=== PATIENT | female | born 1970 | race African-American/Black ===

== ENCOUNTER 2016-10-04 19:30 | Emergency (ER) | payer OTHER ==
[~2016-10-04] VITALS: Ht 170.2 cm; Wt 90.7 kg
[~2016-10-04 19:30] MED LIST: AUGMENTIN 875-1 EAC1 ORAL; CYCLOBENZAPRINE10 MG ORAL; IBUPROFEN600 MG ORAL; IBUPROFEN800 MG ORAL; LISINOPRIL10 MG ORAL; LISINOPRIL5 MG ORAL; NORCO 5-325 TA1 EAC1 ORAL; NORCO 5-325 TA1 EACH ORAL; NORCO 5-325 TA1 EACH PO; PATADAY2.5 ML OP; REGLAN10 MG ORAL; SILVADENE20 GM TP; UNOBMED
[2016-10-04 19:52] VITALS: BP 139/94
[2016-10-04] MEDS ORDERED: Loperamide 2mg cap ORAL ONE (20:30)
[2016-10-04 21:05] LABS: MEAN CORPUSCULAR HEMOGLOBIN 36.4 PG (27.0-31.0); MEAN CORPUSCULAR HGB CONC 33.1 G/DL (32.0-36.0); MEAN CORPUSCULAR VOLUME 110 FL (80-99); MEAN PLATELET VOLUME 6.3 FL (6.5-10.1); PLATELET COUNT 276 K/UL (150-450); RED BLOOD COUNT 3.23 M/UL (4.20-5.40); RED CELL DISTRIBUTION WIDTH 12.9 % (11.6-14.8); WHITE BLOOD COUNT 7.1 K/UL (4.8-10.8)
[2016-10-04 21:08] LABS: BASOPHILS % (AUTO) 0.8 % (0.0-2.0); EOSINOPHILS % (AUTO) 1.3 % (0.0-3.0); LYMPHOCYTES % (AUTO) 55.3 % (20.0-45.0); MONOCYTES % (AUTO) 3.2 % (1.0-10.0); NEUTROPHILS % (AUTO) 39.4 % (45.0-75.0)
[2016-10-04 21:30] LABS: ANION GAP 17 (5-15); CALCIUM 8.9 mg/dL (8.6-10.2); CARBON DIOXIDE 24 mEQ/L (20-30); CHLORIDE 97 mEQ/L (98-107); CREATININE 0.9 mg/dL (0.5-0.9); GLOMERULAR FILTRATION RATE > 60 mL/min (>60); HEMOLYSIS 65; POTASSIUM 3.8 mEQ/L (3.4-4.9); SODIUM 138 mEQ/L (135-145)
[2016-10-04] MEDS ORDERED: ZOFRAN4 M3 ORAL (22:02)
[2016-10-04] MEDS ORDERED: IMODIUM2 MG ORAL (22:02)
[2016-10-04 22:13] VITALS: BP 125/82
[2016-10-04 22:14] VITALS: BP 125/82
--- NOTE | 2016-10-08 08:38 | Emergency Room Report ---
History of Present Illness General Chief Complaint: Abdominal Pain Source: Patient Present Illness HPI Patient is a 46-year-old female presented after having increased abdominal pain. Patient reported having increased crampy pain associated with vomiting and diarrhea. The patient thinks this began after eating some bad food. Patient had no recent travel. The patient had no recent hematemesis or bloody stools. She states that she had been having multiple episodes of watery diarrhea. She denied been . Allergies: Coded Allergies: No Known Allergies (Unverified , 10/22/15) Patient History Past Medical History: see triage record Last Menstrual Period: 09/24/16 Now: No Reviewed Nursing Documentation: PMH: Agreed, PSxH: Agreed Nursing Documentation-PMH Past Medical History: No History, Except For Hx Hypertension: Yes Hx Cancer: No Hx Gastrointestinal Problems: Yes - ABD PAIN Hx Neurological Problems: No Review of Systems All Other Systems: negative except mentioned in HPI Physical Exam Vital Signs Date Time Temp Pulse Resp B/P Pulse Ox O2 Delivery O2 Flow Rate FiO2 10/04/16 19:49 98.4 89 14 139/94 100 Room Air Sp02 EP Interpretation: reviewed, normal General Appearance: normal inspection, well appearing, no apparent distress, alert, GCS 15 Head: atraumatic ENT: normal ENT inspection, hearing grossly normal, normal voice Neck: normal inspection, full range of motion, supple, no bony tend Respiratory: normal inspection, lungs clear, normal breath sounds, no respiratory distress, no retraction, no wheezing Cardiovascular #1: regular rate, rhythm, no edema Gastrointestinal: normal inspection, normal bowel sounds, non tender, soft, no guarding, no hernia Genitourinary: no CVA tenderness Musculoskeletal: normal inspection, back normal, normal range of motion Neurologic: normal inspection, alert, oriented x3, responsive, glove boarder III-XII nml as tested, speech normal Psychiatric: normal inspection, judgement/insight normal, mood/affect normal Skin: normal inspection, normal color, no rash Medical Decision Making Diagnostic Impression: Primary Impression: Gastroenteritis and colitis, viral ER Course Patient presented for abdominal pain. Differential diagnoses included ischemic bowel, appendicitis, perforated viscus, abdominal aortic aneurysm, inferior myocardial infarction, viral gastroenteritis. Because of complexity of patient' s case laboratory testing and imaging studies were ordered. . Patient was given antiemetics as well as a GI cocktail. The patient some improvement in her symptoms. The patient presented a viral gastroenteritis.The patient is advised to follow up with primary care doctor in 1-2 days. Patient is advised to return if any worsening condition or if any changes in status that are concerning. Labs Test 10/04/16 20:45 White Blood Count 7.1 K/UL (4.8-10.8) Red Blood Count 3.23 M/UL (4.20-5.40) Hemoglobin 11.8 G/DL (12.0-16.0) Hematocrit 35.6 % (37.0-47.0) Mean Corpuscular Volume 110 FL (80-99) Mean Corpuscular Hemoglobin 36.4 PG (27.0-31.0) Mean Corpuscular Hemoglobin Concent 33.1 G/DL (32.0-36.0) Red Cell Distribution Width 12.9 % (11.6-14.8) Platelet Count 276 K/UL (150-450) Mean Platelet Volume 6.3 FL (6.5-10.1) Neutrophils (%) (Auto) 39.4 % (45.0-75.0) Lymphocytes (%) (Auto) 55.3 % (20.0-45.0) Monocytes (%) (Auto) 3.2 % (1.0-10.0) Eosinophils (%) (Auto) 1.3 % (0.0-3.0) Basophils (%) (Auto) 0.8 % (0.0-2.0) Sodium Level 138 mEQ/L (135-145) Potassium Level 3.8 mEQ/L (3.4-4.9) Chloride Level 97 mEQ/L (98-107) Carbon Dioxide Level 24 mEQ/L (20-30) Anion Gap 17 (5-15) Blood Urea Nitrogen 13 mg/dL (7-23) Creatinine 0.9 mg/dL (0.5-0.9) Estimat Glomerular Filtration Rate > 60 mL/min (>60) Glucose Level 104 mg/dL (74-106) Calcium Level 8.9 mg/dL (8.6-10.2) Last Vital Signs Date Time Temp Pulse Resp B/P Pulse Ox O2 Delivery O2 Flow Rate FiO2 10/04/16 22:14 98.4 80 16 125/82 99 Room Air Status: improved Disposition: HOME, SELF-CARE Condition: Stable Scripts Ondansetron* (ZOFRAN*) 4 Mg Tablet 4 MG ORAL Q6H Y for Nausea & Vomiting, #20 TAB Prov: Ryan Eagle 10/04/16 Loperamide HCl (Loperamide) 2 Mg Capsule 2 MG ORAL Q4H, #20 CAP 0 Refills Prov: Ryan Eagle 10/04/16 Patient Instructions: Viral Gastroenteritis, Adult Ryan Eagle Oct 08, 2016 08:38
== END 2016-10-04 22:14 | disposition home or self-care (01) ==
LOC: EMR 20:30
DX: K52.9 Noninfective gastroenteritis and colitis, unspecified (principal); A08.4 Viral intestinal infection, unspecified; R10.9 Unspecified abdominal pain; R11.10 Vomiting, unspecified; R19.7 Diarrhea, unspecified; I10 Essential (primary) hypertension
CPT/HCPCS: 36415; 80048; 85025; 96374; 96375; 99284; J2405; J7040

== ENCOUNTER 2017-03-02 08:39 | Emergency (ER) | payer OTHER ==
[~2017-03-02] VITALS: Ht 167.6 cm; Wt 96.6 kg
[~2017-03-02 08:39] MED LIST changes: +IMODIUM2 MG ORAL; +ZOFRAN4 M3 ORAL
[2017-03-02 09:03] VITALS: BP 123/85
[2017-03-02] MEDS ORDERED: IBUPROFEN600 MG ORAL (09:14)
[2017-03-02 09:29] VITALS: BP 121/85
--- NOTE | 2017-03-02 09:51 | Diagnostic Imaging Report ---
Indication: TRAUMA Technique: 3 views right hand Comparison: 2013 Findings: No acute fractures. No dislocations. Joint spaces are preserved. Previously question fracture fragment at the base of the fifth middle phalanx is no longer evident. Impression: Negative
--- NOTE | 2017-03-03 07:51 | Emergency Room Report ---
History of Present Illness General Chief Complaint: Pain Source: Patient, Medical Record Present Illness HPI Patient present with complaints of pain to her right middle finger Injury occurred about 2 weeks ago when the patient fell onto the finger Patient has had some continued swelling in the knuckle area she had seen her physician The presents for further evaluation Denies any wrist pain denies any elbow pain Denies any other trauma pain is 3/10 worse with moving the finger and touch Allergies: Coded Allergies: No Known Allergies (Unverified , 10/22/15) Patient History Past Medical History: see triage record Pertinent Family History: none Last Menstrual Period: 02/13/17 Now: No : 7 Para: 4 Reviewed Nursing Documentation: PMH: Agreed, PSxH: Agreed Nursing Documentation-PMH Past Medical History: No History, Except For Hx Hypertension: Yes Hx Cancer: No Hx Gastrointestinal Problems: Yes - ABD PAIN Hx Neurological Problems: No Review of Systems All Other Systems: negative except mentioned in HPI Physical Exam Vital Signs Date Time Temp Pulse Resp B/P Pulse Ox O2 Delivery O2 Flow Rate FiO2 03/02/17 08:43 98.1 68 17 123/85 98 Room Air Sp02 EP Interpretation: reviewed, normal General Appearance: well appearing, no apparent distress Head: normocephalic, atraumatic Eyes: bilateral eye EOMI, bilateral eye PERRL ENT: normal pharynx Neck: supple Respiratory: lungs clear Musculoskeletal: other - There is evidence of some mild swelling on the right middle finger compared to the left however good cap refill and neurovascularly intact Neurologic: alert, oriented x3, responsive Skin: other - As above Lymphatic: no adenopathy Procedures Splinting Splinting : Consent: Verbal Location: right middle finger Pre-Made Type: finger metal splint Pre-Proc Neuro Vasc Exam: normal Post-Proc Neuro Vasc Exam: normal Patient Tolerated: Well Complications: None Medical Decision Making Diagnostic Impression: Primary Impression: finger sprain ER Course X-ray imaging does not reveal any obvious acute fracture patient likely has ligamental/sprain/strain Patient did have the splint applied she is to follow up with her primary physician requires close outpatient Other X-Ray Diagnostic Results Other X-Ray Diagnostic Results : EP Interpretation: Yes Findings: no fractures, no dislocation, no soft tissue swelling Number of Views: 3 - right hand Last Vital Signs Date Time Temp Pulse Resp B/P Pulse Ox O2 Delivery O2 Flow Rate FiO2 03/02/17 09:29 65 16 121/85 99 Room Air 03/02/17 09:03 98.1 Status: improved Disposition: HOME, SELF-CARE Condition: Improved Scripts Ibuprofen* (MOTRIN*) 600 Mg Tablet 600 MG ORAL Q8H Y for For Pain, #20 TAB 0 Refills Prov: ALVARO SAN D.O. 03/02/17 Referrals: [employer],[facility]ERR[facility] (PCP) Patient Instructions: Finger Sprain, [id number] Additional Instructions: Patient is provided with the discharge instructions notified to follow up with primary doctor in the next 2-3 days otherwise return to the er with any worsening symptoms. Please note that this report is being documented using [employer] technology. This can lead to erroneous entry secondary to incorrect interpretation by the dictating instrument. ALVARO [place] D.O. Mar 03, 2017 07:51
== END 2017-03-02 09:31 | disposition home or self-care (01) ==
LOC: EMR 09:10
DX: S63.612A Unspecified sprain of right middle finger, initial encounter (principal); W19.XXXA Unspecified fall, initial encounter; Y92.89 Other specified places as the place of occurrence of the external cause
CPT/HCPCS: 29130; 99283

== ENCOUNTER 2018-08-27 09:34 | Emergency (ER) | payer MEDICAID, OTHER ==
[~2018-08-27] VITALS: Ht 167.6 cm; Wt 90.7 kg
[2018-08-27 10:05] VITALS: BP 136/95
[2018-08-27] MEDS ORDERED: ENALAPRIL MALEAT5 MG ORAL (10:05)
[2018-08-27] MEDS ORDERED: Ketorolac 60mg Inj IM ONE (11:15)
--- NOTE | 2018-08-27 11:23 | Emergency Room Report ---
History of Present Illness General Chief Complaint: Back Pain-No Injury Source: Patient, Medical Record Present Illness HPI Patient states that she has been sleeping on a hard floor. She states she did get an air mattress a couple days ago. However, she has been having severe low back pain diffusely. She denies weakness. She denies tingling or numbness. She denies loss of bowel or bladder control. She denies trauma. She states she does have a history of low back pain. She has no other complaints. Allergies: Coded Allergies: No Known Allergies (Unverified , 08/27/18) Patient History Past Medical History: none, see triage record, HTN Past Surgical History: none Pertinent Family History: none Social History: Denies: smoking, alcohol use, drug use Last Menstrual Period: Jul 2018 Reviewed Nursing Documentation: PMH: Agreed; PSxH: Agreed Nursing Documentation-PMH Past Medical History: No History, Except For Hx Hypertension: Yes Hx Cancer: No Hx Gastrointestinal Problems: Yes - ABD PAIN Hx Neurological Problems: No Review of Systems All Other Systems: negative except mentioned in HPI Physical Exam Vital Signs Date Time Temp Pulse Resp B/P (MAP) Pulse Ox O2 Delivery O2 Flow Rate FiO2 08/27/18 10:01 97.9 65 16 136/95 99 Room Air Sp02 EP Interpretation: reviewed, normal General Appearance: no apparent distress, alert, GCS 15, non-toxic Head: normocephalic, atraumatic Eyes: bilateral eye normal inspection, bilateral eye PERRL ENT: hearing grossly normal, normal pharynx, no angioedema, normal voice Neck: full range of motion, supple/symm/no masses Respiratory: no respiratory distress, no retraction, no accessory muscle use, speaking full sentences Rectal: deferred Musculoskeletal: gait/station normal, normal range of motion, tender - TTP Diffusely L. spine paraspinal m. Neurologic: alert, oriented x3, responsive, motor strength/tone normal, sensory intact, speech normal Psychiatric: judgement/insight normal, memory normal, mood/affect normal, no suicidal/homicidal ideation Skin: normal color, no rash, warm/dry, well hydrated Medical Decision Making Diagnostic Impression: Primary Impression: Muscle spasm of back Additional Impression: Lumbago ER Course This patient has a clinical presentation consistent with mechanical back pain. There are no red flags on physical exam. The patient denies any concerning features such as trauma, fevers, night sweats, history of malignancy, pain worse at night, IV drug abuse, urinary/fecal incontinence or retention, focal weakness or change in sensation, or refractory pain. Given these pertinent negatives in the history and physical exam an emergent cause of the back pain such as epidural abscess, metastasis to bone, cauda equina syndrome, and fracture is less likely. I also doubt emergent cardiovascular cause of back pain such as aortic dissection a ruptured abdominal aortic aneurysm given patient with equal pulses in all 4 extremities with no diastolic murmur or pulsatile abdominal mass. The patient was counseled that, though unlikely, the possibility of an emergent cause of back pain may still be present and that the patient should return immediately if symptoms persist or worsen. The symptoms are reproducible with movement. Patient had a benign evaluation and neurologic examination. No emergency etiology was identified. Last Vital Signs Date Time Temp Pulse Resp B/P (MAP) Pulse Ox O2 Delivery O2 Flow Rate FiO2 08/27/18 10:05 97.9 65 16 136/95 99 Room Air Status: improved Disposition: HOME, SELF-CARE Condition: Improved Referrals: NON PHYSICIAN (PCP) Patient Instructions: Back Pain, Adult Siri Jordan DO Aug 27, 2018 11:23
[2018-08-27] MEDS ORDERED: IBUPROFEN800 MG ORAL (11:26)
[2018-08-27] MEDS ORDERED: CYCLOBENZAPRINE10 MG ORAL (11:26)
[2018-08-27] MEDS ORDERED: ACETAMINOPHEN-1 EAC1 ORAL (11:26)
[2018-08-27 11:44] VITALS: BP 131/79
[2018-08-27 11:45] VITALS: BP 131/79
== END 2018-08-27 11:45 | disposition home or self-care (01) ==
LOC: EMR 10:15
DX: M62.830 Muscle spasm of back (principal); M54.5 Low back pain
CPT/HCPCS: 96372; 99283

== ENCOUNTER 2019-06-09 18:00 | Emergency (ER) | payer MEDICAID ==
[~2019-06-09] VITALS: Ht 167.6 cm; Wt 90.3 kg
[~2019-06-09 18:00] MED LIST changes: +ACETAMINOPHEN-1 EAC1 ORAL; +ENALAPRIL MALEAT5 MG ORAL
[2019-06-09 18:03] VITALS: BP 129/86
--- NOTE | 2019-06-09 18:09 | NUR ---
ED Nurse Note: Pt came in due to right hand swelling started this morning. Noted redness and swelling on her right hand. Possible insect bite. AAO x4 and ambulatory.
[2019-06-09] MEDS ORDERED: Cephalexin 500mg cap ORAL ONE (18:15)
[2019-06-09] MEDS ORDERED: BENADRYL25 MG ORAL (18:30)
[2019-06-09] MEDS ORDERED: CEPHALEXIN500 MG ORAL (18:30)
[2019-06-09 18:48] VITALS: BP 135/79
--- NOTE | 2019-06-09 18:48 | NUR ---
ER DISCHARGE NOTE: Patient is cleared to be discharged per PA, pt is aox4, on room air, with stable vital signs. pt was given dc and prescription instructions, pt was able to verbalize understanding, pt id band removed. pt is able to ambulate with steady gait. pt took all belongings.
--- NOTE | 2019-06-09 20:07 | Emergency Room Report ---
History of Present Illness General Chief Complaint: Skin Rash/Abscess Source: Patient, Medical Record Present Illness HPI The patient is a 49-year-old female presenting for possible insect bite. She states that she was outdoors today and noticed a bump on her right hand which has been increasing in size now. She noticed redness and swelling as well as pain. Pain is a 5 out of 10 dull ache and worse with touch. She denies any known allergies. She denies any radiating pain or other symptoms including N, V , fever, chills, numbness, SOB, CP Allergies: Coded Allergies: No Known Allergies (Unverified , 08/27/18) Patient History Past Medical History: see triage record Pertinent Family History: none Last Menstrual Period: 2 months ago Reviewed Nursing Documentation: PMH: Agreed; PSxH: Agreed Nursing Documentation-PMH Past Medical History: No History, Except For Hx Hypertension: Yes Hx Cancer: No Hx Gastrointestinal Problems: Yes - ABD PAIN Hx Neurological Problems: No Review of Systems All Other Systems: negative except mentioned in HPI Physical Exam Vital Signs Date Time Temp Pulse Resp B/P (MAP) Pulse Ox O2 Delivery O2 Flow Rate FiO2 06/09/19 18:03 98.2 76 16 129/86 98 Room Air Sp02 EP Interpretation: reviewed, normal General Appearance: no apparent distress, alert, GCS 15, non-toxic Head: normocephalic, atraumatic Respiratory: chest non-tender, lungs clear, normal breath sounds, speaking full sentences Neurologic: alert, oriented x3, responsive Psychiatric: judgement/insight normal, memory normal, mood/affect normal, no suicidal/homicidal ideation Skin: rash - R hand dorsal surface erythema and edema Medical Decision Making PA Attestation Dr. Davis is my supervising physician. Patient management was discussed with my supervising physician Diagnostic Impression: Primary Impression: Cellulitis Qualified Codes: L03.113 - Cellulitis of right upper limb ER Course The patient is a 49-year-old female presenting for possible insect bite. DDx considered but not limited to: cellulitis, abscess, dermatitis, allergic reaction, among others PE: Afebrile. vitals stable. R hand dorsal surface: + erythema, + edema, + hot to the touch, + tender to palpation Given keflex and benadryl in ER The patient will be discharged home with prescription for Keflex and benadryl and is told to follow-up with primary doctor as soon as possible. She is given ER precautions to return if she develops fever, chills, or any other symptoms Last Vital Signs Date Time Temp Pulse Resp B/P (MAP) Pulse Ox O2 Delivery O2 Flow Rate FiO2 06/09/19 18:48 98.8 72 17 135/79 96 Room Air Status: improved Disposition: HOME, SELF-CARE Condition: Improved Scripts Diphenhydramine Hcl* (BENADRYL*) 25 Mg Capsule 25 MG ORAL Q6H PRN for Itching, #10 CAP Prov: PHILIPPE DAVID P.A. 06/09/19 Cephalexin* (KEFLEX*) 500 Mg Capsule 500 MG ORAL EVERY 12 HOURS, #14 CAP 0 Refills Prov: PHILIPPE DAVID.A. 06/09/19 Referrals: NON PHYSICIAN (PCP) Patient Instructions: Cellulitis Additional Instructions: I discussed my findings with the patient. All questions and concerns have been answered. Treatment and medication compliance have been addressed. I advised the patient that they need to follow up with Primary doctor within 1-2 days. Return to ER if symptoms worsen, new symptoms arise such as fever, or if needed for any reason. Patient verbalized understanding of discharge instructions. PHILIPPE DAVID Jun 09, 2019 20:06
== END 2019-06-09 18:48 | disposition home or self-care (01) ==
LOC: EMR 18:15
DX: L03.113 Cellulitis of right upper limb (principal); I10 Essential (primary) hypertension
CPT/HCPCS: 99282

== ENCOUNTER 2019-07-11 09:07 | Emergency (ER) | payer MEDICAID ==
[~2019-07-11] VITALS: Ht 167.6 cm; Wt 90.7 kg
[~2019-07-11 09:07] MED LIST changes: +BENADRYL25 MG ORAL; +CEPHALEXIN500 MG ORAL
[2019-07-11 09:20] VITALS: BP 141/81
--- NOTE | 2019-07-11 09:20 | NUR ---
ED Nurse Note: Pt walked into ED c/o of nausea, vomitting and diarrhea for x3 days. Reports loose brownish/greenish stool and clear vomitus. Pt also c/o of LUQ pain /. IV established on LFA 20G, patent and asymptomatic. Will continue to monitor.
--- NOTE | 2019-07-11 09:25 | NUR ---
ED Nurse Note: Patient unable to provide urine at this time, Dr. duff aware and notified
[2019-07-11] MEDS ORDERED: Morphine Sulfate 4mg/ml Inj (IV USE ONLY) IVP ONE (09:30)
[2019-07-11 09:38] LABS: BASOPHILS % (AUTO) 0.5 % (0.0-2.0); EOSINOPHILS % (AUTO) 0.1 % (0.0-3.0); HEMOGLOBIN 13.8 G/DL (12.0-16.0); LYMPHOCYTES % (AUTO) 40.5 % (20.0-45.0); MEAN CORPUSCULAR VOLUME 102 FL (80-99); NEUTROPHILS % (AUTO) 54.8 % (45.0-75.0); PLATELET COUNT 299 K/UL (150-450); RED BLOOD COUNT 3.93 M/UL (4.20-5.40); RED CELL DISTRIBUTION WIDTH 11.8 % (11.6-14.8); WHITE BLOOD COUNT 7.6 K/UL (4.8-10.8)
--- NOTE | 2019-07-11 09:50 | Emergency Room Report ---
History of Present Illness General Chief Complaint: Nausea, Vomiting, and Diarrhea Source: Patient Present Illness HPI Patient presents emergency department today complaint nausea vomiting and diarrhea. Patient also has abdominal pain initially on the left lower quadrant but now improved. Patient denies any fever chest pain. States that she does have sick contacts. Symptoms noted to be severe. Of note patient states that she was admitted in the past for stomach blockage. Review of records show that patient had a history ileus I require admission. No other complaints are noted. Patient states that she has history of C-sections. Patient denies any dysuria urinary frequency. Patient states the symptoms have been going on for couple days she is unable to eat or drink anything. She is unable to tolerate any oral medications for nausea. No other modifying factors. No other associated signs and symptoms. No other complaints were noted. Allergies: Coded Allergies: No Known Allergies (Unverified , 08/27/18) Patient History Past Medical History: HTN, other - Abdominal pain Past Surgical History: none Pertinent Family History: none Social History: Denies: smoking, alcohol use, drug use Last Menstrual Period: 4 MONTHS AGO Now: No Reviewed Nursing Documentation: PMH: Agreed; PSxH: Agreed Nursing Documentation-PMH Hx Hypertension: Yes Hx Cancer: No Hx Gastrointestinal Problems: Yes - ABD PAIN Hx Neurological Problems: No Review of Systems All Other Systems: negative except mentioned in HPI Physical Exam Vital Signs Date Time Temp Pulse Resp B/P (MAP) Pulse Ox O2 Delivery O2 Flow Rate FiO2 07/11/19 09:09 98.1 65 22 168/72 (104) 97 Room Air Sp02 EP Interpretation: reviewed, normal General Appearance: normal inspection, well appearing, no apparent distress, alert Head: atraumatic Eyes: bilateral eye normal inspection ENT: normal ENT inspection, hearing grossly normal, normal voice Neck: normal inspection, full range of motion, supple, no bony tend Respiratory: normal inspection, lungs clear, normal breath sounds, no respiratory distress, no retraction, no wheezing Cardiovascular #1: regular rate, rhythm, no edema Gastrointestinal: normal inspection, normal bowel sounds, soft, no guarding, no hernia, no rebound, other - Diffusely tender. Genitourinary: no CVA tenderness Musculoskeletal: normal inspection, back normal, normal range of motion Neurologic: normal inspection, alert, responsive, speech normal Psychiatric: normal inspection, judgement/insight normal, mood/affect normal Medical Decision Making Diagnostic Impression: Primary Impression: Nausea, vomiting, and diarrhea Additional Impressions: abdominal pain UTI (urinary tract infection) Gastroenteritis ER Course Patient presents to the emergency department today complaining of abdominal pain. Differential considerations include acute pancreatitis, cholecystitis, gastritis, hepatitis, appendicitis just to name a few. Given the severity of the patient's presentation I felt this is a highly complex patient. This patient required extensive workup. Laboratory work-up shows evidence UTI. CT scan abdomen pelvis was performed because of history of ileus CT scans noted to be negative. Given patient's urine was positive for UTI feel the patient needed treatment with antibiotics. Patient was given prescription of Cipro. Zofran. Patient was given fluids felt much better. Therefore felt the patient be discharged home. Patient is advised to follow up with primary doctor in 2-3 days and return the emergency room for any worsening symptoms and as needed. Labs Test 07/11/19 09:15 White Blood Count 7.6 K/UL (4.8-10.8) Red Blood Count 3.93 M/UL (4.20-5.40) Hemoglobin 13.8 G/DL (12.0-16.0) Hematocrit 40.0 % (37.0-47.0) Mean Corpuscular Volume 102 FL (80-99) Mean Corpuscular Hemoglobin 35.1 PG (27.0-31.0) Mean Corpuscular Hemoglobin Concent 34.5 G/DL (32.0-36.0) Red Cell Distribution Width 11.8 % (11.6-14.8) Platelet Count 299 K/UL (150-450) Mean Platelet Volume 6.6 FL (6.5-10.1) Neutrophils (%) (Auto) 54.8 % (45.0-75.0) Lymphocytes (%) (Auto) 40.5 % (20.0-45.0) Monocytes (%) (Auto) 4.0 % (1.0-10.0) Eosinophils (%) (Auto) 0.1 % (0.0-3.0) Basophils (%) (Auto) 0.5 % (0.0-2.0) Urine Color Pale yellow Urine Appearance Clear Urine pH 8 (4.5-8.0) Urine Specific [place] 1.015 (1.005-1.035) Urine Protein 1+ (NEGATIVE) Urine Glucose (UA) Negative (NEGATIVE) Urine Ketones Negative (NEGATIVE) Urine Blood Negative (NEGATIVE) Urine Nitrite Negative (NEGATIVE) Urine Bilirubin Negative (NEGATIVE) Urine Urobilinogen Normal MG/DL (0.0-1.0) Urine Leukocyte Esterase 1+ (NEGATIVE) Urine RBC 0-2 /HPF (0 - 2) Urine WBC 20-30 /HPF (0 - 2) Urine Squamous Epithelial Cells Few /LPF (NONE/OCC) Urine Bacteria Few /HPF (NONE) Urine Mucus Few /LPF (NONE/OCC) Sodium Level 140 MMOL/L (136-145) Potassium Level 2.9 MMOL/L (3.5-5.1) Chloride Level 104 MMOL/L (98-107) Carbon Dioxide Level 23 MMOL/L (21-32) Anion Gap 13 mmol/L (5-15) Blood Urea Nitrogen 7 mg/dL (7-18) Creatinine 1.4 MG/DL (0.55-1.30) Estimat Glomerular Filtration Rate 48.8 mL/min (>60) Glucose Level 120 MG/DL (74-106) Calcium Level 9.8 MG/DL (8.5-10.1) Total Bilirubin 0.7 MG/DL (0.2-1.0) Aspartate Amino Transf (AST/SGOT) 29 U/L (15-37) Alanine Aminotransferase (ALT/SGPT) 50 U/L (12-78) Alkaline Phosphatase 61 U/L (46-116) Total Protein 7.6 G/DL (6.4-8.2) Albumin 3.8 G/DL (3.4-5.0) Globulin 3.8 g/dL Albumin/Globulin Ratio 1.0 (1.0-2.7) Lipase 133 U/L (73-393) CT/MRI/US Diagnostic Results CT/MRI/US Diagnostic Results : Imaging Test Ordered: CT abdomen pelvis: Negative Last Vital Signs Date Time Temp Pulse Resp B/P (MAP) Pulse Ox O2 Delivery O2 Flow Rate FiO2 07/11/19 09:20 98.1 74 19 141/81 100 Room Air Status: improved Disposition: HOME, SELF-CARE Condition: Stable Scripts Ondansetron (Zofran) 4 Mg Tablet 4 MG ORAL Q6H PRN for Nausea & Vomiting, #15 TAB 0 Refills Prov: Rey Mendez MD 07/11/19 Ciprofloxacin Hcl* (CIPROFLOXACIN HCL*) 500 Mg Tablet 500 MG ORAL Q12H, #14 TAB 0 Refills Prov: Rey Mendez MD 07/11/19 Referrals: NON PHYSICIAN (PCP) Rey Mendez MD Jul 11, 2019 09:50
[2019-07-11 09:55] LABS: ANION GAP 13 mmol/L (5-15); BLOOD UREA NITROGEN 7 mg/dL (7-18); CALCIUM 9.8 MG/DL (8.5-10.1); CARBON DIOXIDE 23 MMOL/L (21-32); CHLORIDE 104 MMOL/L (98-107); CREATININE 1.4 MG/DL (0.55-1.30); POTASSIUM 2.9 MMOL/L (3.5-5.1); SODIUM 140 MMOL/L (136-145)
[2019-07-11 10:00] LABS: ALANINE AMINOTRANSFERASE 50 U/L (12-78); ALBUMIN 3.8 G/DL (3.4-5.0); ALKALINE PHOSPHATASE 61 U/L (46-116); ASPARTATE AMINO TRANSFERASE 29 U/L (15-37); BILIRUBIN,TOTAL 0.7 MG/DL (0.2-1.0)
--- NOTE | 2019-07-11 10:00 | NUR ---
ED Nurse Note: Patient able to give urine, lab sent down
--- NOTE | 2019-07-11 10:30 | NUR ---
ED Nurse Note: Alexi went down to CT, accompanied by Tech
[2019-07-11 10:48] LABS: APPEARANCE,URINE CLEAR; BILIRUBIN, URINE NEGATIVE (NEGATIVE); COLOR,URINE PALE YELLOW; GLUCOSE, URINE (UA) NEGATIVE (NEGATIVE); KETONES,URINE NEGATIVE (NEGATIVE); LEUKOCYTE ESTERASE ,URINE 1+ (NEGATIVE); NITRITE,URINE NEGATIVE (NEGATIVE); PH,URINE 8 (4.5-8.0); PROTEIN,URINE 1+ (NEGATIVE); UROBILINOGEN,URINE NORMAL MG/DL (0.0-1.0)
--- NOTE | 2019-07-11 10:48 | NUR ---
ED Nurse Note: REPORTED TO DR. RESENDIZ POTASSIUM LEVEL OF 2.9
--- NOTE | 2019-07-11 11:11 | Diagnostic Imaging Report ---
Indication: Nausea, vomiting, diarrhea, abdominal pain in the left lower quadrant Technique: Spiral acquisitions obtained through the abdomen and pelvis. No oral contrast utilized, per emergency room physician request No IV contrast utilized, per referring physician request.. Multiplanar reconstructions were generated. Total dose length product 1197 mGycm. CTDIvol(s) 21 mGy. Dose reduction achieved using automated exposure control Comparison: 01/06/2014 Findings: Lack of enteric contrast limits assessment of the GI tract. There are a few colonic diverticula. No evidence of diverticulitis. The appendix is normal. No small bowel distention. Previously demonstrated prominent fluid-filled small bowel loops are no longer evident, and previously demonstrated infiltration of the fat of the lower mesenteric root is no longer evident. No free or loculated intraperitoneal gas or fluid is evident. Broad-based fat-containing umbilical hernia is again noted. Distal esophagus, stomach, duodenum are unremarkable. Lack of IV contrast limits assessment of solid organs. The liver, gallbladder, bile ducts, pancreas, spleen, adrenals, kidneys are all unremarkable. No renal or ureteral calculi, hydronephrosis, nor hydroureter. No pelvic mass or adenopathy. Uterus and adnexal structures appear unremarkable. Again demonstrated is suggestion of a 16 mm vaginal wall cyst. The included lung bases are clear. The bones demonstrate mild degenerative spondylosis changes. Impression: Limited assessment of the GI tract, due to lack of enteric contrast administration No definite acute abnormality Colonic diverticulosis. No evidence of diverticulitis Incidental findings as noted, including broad-based umbilical hernia containing only fat, small vaginal wall cyst, degenerative spondylosis The CT scanner at [facility] is accredited by the [employer] and the scans are performed using protocols designed to limit radiation exposure to as low as reasonably achievable to attain images of sufficient resolution adequate for diagnostic evaluation.
[2019-07-11] MEDS ORDERED: ZOFRAN4 MG ORAL (11:26)
[2019-07-11] MEDS ORDERED: CIPROFLOXACIN500 M2 ORAL (11:26)
[2019-07-11 11:45] VITALS: BP 132/79
--- NOTE | 2019-07-11 11:45 | NUR ---
ER DISCHARGE NOTE: Patient is cleared to be discharged per ERMD, pt is aox4, on room air, with stable vital signs. pt was given dc and prescription instructions, pt was able to verbalize understanding, pt id band and iv site removed without complications. pt is able to ambulate with steady gait. pt took all belongings.
[2019-07-12] MEDS ORDERED: OMEPRAZOLE20 M2 ORAL (09:10)
[2019-07-12] MEDS ORDERED: CEPHALEXIN500 M1 ORAL (09:34)
== END 2019-07-11 11:45 | disposition home or self-care (01) ==
LOC: EMR 09:40
DX: K52.9 Noninfective gastroenteritis and colitis, unspecified (principal); N39.0 Urinary tract infection, site not specified; I10 Essential (primary) hypertension; R10.9 Unspecified abdominal pain
CPT/HCPCS: 36415; 74176; 80053; 81003; 83690; 85025; 87086; 96361; 96374; 96375; J2270; J2405; Z7502; 99284; J8499

== ENCOUNTER 2020-03-09 11:10 | Emergency (ER) | payer MEDICAID ==
[~2020-03-09] VITALS: Ht 167.6 cm; Wt 90.7 kg
[~2020-03-09 11:10] MED LIST changes: +CEPHALEXIN500 M1 ORAL; +CIPROFLOXACIN500 M2 ORAL; +IBU800 MG PO; +OMEPRAZOLE20 M2 ORAL; +TYLENOL EXTRA500 MG ORAL; +ZOFRAN4 MG ORAL
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
[2020-03-09] MEDS ORDERED: IBU800 MG PO (12:11)
[2020-03-09] MEDS ORDERED: TYLENOL EXTRA500 MG ORAL (12:11)
[2020-03-09 12:45] VITALS: BP 136/87
--- NOTE | 2020-03-09 13:19 | Diagnostic Imaging Report ---
Indication: Pain, trauma Technique: 3 views of the right fourth toe Comparison: 09/30/2019 Findings: There is an oblique minimally displaced fracture of the fourth proximal phalanx. No other acute fractures. No dislocations. Findings are new since prior study Impression: Positive for right fourth proximal phalangeal fracture
== END 2020-03-09 12:30 | disposition home or self-care (01) ==
LOC: EMR 11:33
DX: S92.511A Displaced fracture of proximal phalanx of right lesser toe(s), initial encounter for closed fracture (principal); W50.0XXA Accidental hit or strike by another person, initial encounter; Y92.9 Unspecified place or not applicable; I10 Essential (primary) hypertension
CPT/HCPCS: 73660; Z7502; 99283

== ENCOUNTER 2020-09-25 17:58 | Emergency (ER) | payer MEDICAID ==
[~2020-09-25] VITALS: Ht 167.6 cm; Wt 90.7 kg
[2020-09-25 18:11] VITALS: BP 158/94
--- NOTE | 2020-09-25 18:12 | NUR ---
ED Nurse Note: Pt ambulated to ED from home d/t nausea and vomiting that has started since yesterday. Pt is AOx4, calm and cooperative to care, VSS, on RA, afebrile on triage. Pt denies any abdominal pain nor diarrhea. Pt stated that she has acid reflux and had some beer yesterday around 1700.
--- NOTE | 2020-09-25 18:26 | Emergency Room Report ---
History of Present Illness General Chief Complaint: Vomiting Source: Patient Present Illness HPI The patient presents with 2 days of vomiting and epigastric pain. She says she suffers from reflux. She drank some beer at the onset of this problem. She may have used some marijuana also. She denies any fevers or chills. She is not vomiting blood. She having trouble keeping down any liquids at this time. She tried using Zofran but says she vomited back up. She reports the pain 10/10 in the epigastric without radiation. She moved her bowels twice this morning. Was dark but not melena because she is on iron at this time. Last time this happened to her she has diarrhea but denies diarrhea at this time. Patient is perimenopausal at this time. Patient has chronic dermatitis which he uses triamcinolone on her hands. Patient denies exposure to Covid positive contacts. No sore throat, chest pain, palpitations, dysuria, shortness of breath, joint pain, depression, anxiety, visual changes, dizziness, headache. 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 Patient History Past Medical History: see triage record Social History: Reports: smoking, alcohol use Social History Narrative From home Last Menstrual Period: MENOPAUSE Reviewed Nursing Documentation: PMH: Agreed; PSxH: Agreed Nursing Documentation-PMH Hx Hypertension: Yes Hx Cancer: No Hx Gastrointestinal Problems: Yes - ACID REFLUX Hx Neurological Problems: No Review of Systems All Other Systems: negative except mentioned in HPI Physical Exam Vital Signs Date Time Temp Pulse Resp B/P (MAP) Pulse Ox O2 Delivery O2 Flow Rate FiO2 09/25/20 18:06 98.1 88 18 158/94 (115) 96 Room Air Sp02 EP Interpretation: reviewed, normal General Appearance: well appearing, no apparent distress, GCS 15 Head: normocephalic Eyes: bilateral eye normal inspection, bilateral eye PERRL, bilateral eye EOMI ENT: moist mucus membranes Neck: supple Respiratory: lungs clear, normal breath sounds Cardiovascular #1: regular rate, rhythm Cardiovascular #2: 2+ radial (R) Gastrointestinal: normal inspection, normal bowel sounds, no mass, non- distended, no guarding, no rebound, tenderness - Epigastric, overweight Musculoskeletal: back normal, normal range of motion, gait/station normal Neurologic: alert, oriented x3, grossly normal Psychiatric: mood/affect normal Skin: warm/dry, other - Lesions of contact dermatitis bilateral hands in the thenar areas Medical Decision Making Diagnostic Impression: Primary Impression: Nausea and vomiting Qualified Codes: R11.2 - Nausea with vomiting, unspecified Additional Impressions: Epigastric pain UTI (urinary tract infection) Qualified Codes: N30.00 - Acute cystitis without hematuria ER Course Patient presents with nausea vomiting and epigastric pain after exposure to beer and THC. Differential includes gastritis, peptic ulcer disease, GERD, viral infection, pancreatitis amongst others. Patient evaluated with labs. Patient treated with IV hydration, metoclopramide, Benadryl, Pepcid and morphine. Laboratory Tests Test 09/25/20 18:50 09/25/20 20:18 White Blood Count 7.5 K/UL (4.8-10.8) Red Blood Count 4.11 M/UL (4.20-5.40) L Hemoglobin 14.7 G/DL (12.0-16.0) Hematocrit 40.2 % (37.0-47.0) Mean Corpuscular Volume 98 FL (80-99) Mean Corpuscular Hemoglobin 35.7 PG (27.0-31.0) H Mean Corpuscular Hemoglobin Concent 36.6 G/DL (32.0-36.0) H Red Cell Distribution Width 14.2 % (11.6-14.8) Platelet Count 238 K/UL (150-450) Mean Platelet Volume 7.9 FL (6.5-10.1) Neutrophils (%) (Auto) 53.2 % (45.0-75.0) Lymphocytes (%) (Auto) 39.6 % (20.0-45.0) Monocytes (%) (Auto) 5.3 % (1.0-10.0) Eosinophils (%) (Auto) 0.4 % (0.0-3.0) Basophils (%) (Auto) 1.6 % (0.0-2.0) Urine Color Yellow Urine Appearance Slightly cloudy Urine pH 7 (4.5-8.0) Urine Specific [place] 1.010 (1.005-1.035) Urine Protein 2+ (NEGATIVE) H Urine Glucose (UA) Negative (NEGATIVE) Urine Ketones 3+ (NEGATIVE) H Urine Blood 2+ (NEGATIVE) H Urine Nitrite Negative (NEGATIVE) Urine Bilirubin Negative (NEGATIVE) Urine Urobilinogen 1 MG/DL (0.0-1.0) H Urine Leukocyte Esterase 2+ (NEGATIVE) H Urine RBC 40-60 /HPF (0 - 2) H Urine WBC 60-80 /HPF (0 - 2) H Urine Squamous Epithelial Cells Few /LPF (NONE/OCC) Urine Bacteria Moderate /HPF (NONE) H Sodium Level 136 MMOL/L (136-145) Potassium Level 3.7 MMOL/L (3.5-5.1) Chloride Level 101 MMOL/L (98-107) Carbon Dioxide Level 21 MMOL/L (21-32) Anion Gap 14 mmol/L (5-15) Blood Urea Nitrogen 9 mg/dL (7-18) Creatinine 1.0 MG/DL (0.55-1.30) Estimated Glomerular Filtration Rate > 60 mL/min (>60) Glucose Level 103 MG/DL (74-106) Calcium Level 8.8 MG/DL (8.5-10.1) Total Bilirubin 1.4 MG/DL (0.2-1.0) H Direct Bilirubin 0.1 MG/DL (0.0-0.3) Aspartate Amino Transferase (AST) 33 U/L (15-37) Alanine Aminotransferase (ALT) 38 U/L (12-78) Alkaline Phosphatase 59 U/L (46-116) Total Protein 7.1 G/DL (6.4-8.2) Albumin 3.5 G/DL (3.4-5.0) Globulin 3.6 g/dL Albumin/Globulin Ratio 1.0 (1.0-2.7) Lipase 119 U/L (73-393) Urine Opiates Screen Negative (NEGATIVE) Urine Barbiturates Screen Negative (NEGATIVE) Phencyclidine (PCP) Screen Negative (NEGATIVE) Urine Amphetamines Screen Negative (NEGATIVE) Urine Benzodiazepines Screen Negative (NEGATIVE) Urine Cocaine Screen Negative (NEGATIVE) Urine Marijuana (THC) Screen Positive (NEGATIVE) H Serum Alcohol < 3 mg/dL Prothrombin Time Pending Prothrombin Time INR Pending Activated Partial Thromboplast Time Pending Status: improved Disposition: HOME, SELF-CARE Condition: Improved Scripts Famotidine* (Pepcid 20mg tablet*) 20 Mg Tablet 20 MG ORAL DAILY, #20 TAB 0 Refills Prov: Mario Haley MD 09/25/20 Promethazine HCl (Promethegan) 25 Mg Supp.rect 25 MG RECTAL Q6H PRN for Nausea & Vomiting, #3 SUPP 1 Refill Prov: Mario Haley MD 09/25/20 Promethazine Hcl* (PHENERGAN*) 25 Mg Tablet 25 MG ORAL Q6H PRN for Nausea & Vomiting, #8 TAB 0 Refills Prov: Mario Haley MD 09/25/20 Mario Haley MD Sep 25, 2020 18:26
[2020-09-25] MEDS ORDERED: Morphine Sulfate 4mg/ml Inj (IV USE ONLY) IVP ONE (18:30)
[2020-09-25] MEDS ORDERED: Metoclopramide 10mg/2ml Inj IVP ONE (18:30)
[2020-09-25] MEDS ORDERED: DiphenhydrAMINE 50mg/ml Inj IVP ONE (18:30)
[2020-09-25] MEDS ORDERED: PHENERGAN25 M1 ORAL (19:01)
[2020-09-25] MEDS ORDERED: PHENERGAN SUPP25 MG RECTAL (19:01)
[2020-09-25] MEDS ORDERED: FAMOTIDINE20 MG ORAL (19:01)
--- NOTE | 2020-09-25 19:24 | NUR ---
ED Nurse Note: Report received from RU Pichardo. Pt is laying in bed with eyes open. AAOx4, vital signs stable. No complaints from pt at the moment. Waiting for lab results.
[2020-09-25 19:57] LABS: ANION GAP 14 mmol/L (5-15); BLOOD UREA NITROGEN 9 mg/dL (7-18); CALCIUM 8.8 MG/DL (8.5-10.1); CARBON DIOXIDE 21 MMOL/L (21-32); CHLORIDE 101 MMOL/L (98-107); POTASSIUM 3.7 MMOL/L (3.5-5.1); SODIUM 136 MMOL/L (136-145)
[2020-09-25 20:06] LABS: BASOPHILS % (AUTO) 1.6 % (0.0-2.0); EOSINOPHILS % (AUTO) 0.4 % (0.0-3.0); HEMATOCRIT 40.2 % (37.0-47.0); HEMOGLOBIN 14.7 G/DL (12.0-16.0); LYMPHOCYTES % (AUTO) 39.6 % (20.0-45.0); MEAN CORPUSCULAR VOLUME 98 FL (80-99); MONOCYTES % (AUTO) 5.3 % (1.0-10.0); NEUTROPHILS % (AUTO) 53.2 % (45.0-75.0); PLATELET COUNT 238 K/UL (150-450); RED BLOOD COUNT 4.11 M/UL (4.20-5.40); RED CELL DISTRIBUTION WIDTH 14.2 % (11.6-14.8); WHITE BLOOD COUNT 7.5 K/UL (4.8-10.8)
[2020-09-25 20:08] LABS: ALANINE AMINOTRANSFERASE 38 U/L (12-78); ALBUMIN 3.5 G/DL (3.4-5.0); ALKALINE PHOSPHATASE 59 U/L (46-116); ASPARTATE AMINO TRANSFERASE 33 U/L (15-37); BILIRUBIN,TOTAL 1.4 MG/DL (0.2-1.0)
[2020-09-25 20:17] LABS: BILIRUBIN,DIRECT 0.1 MG/DL (0.0-0.3)
[2020-09-25 20:28] LABS: APPEARANCE,URINE SLIGHTLY CLOUDY; BILIRUBIN, URINE NEGATIVE (NEGATIVE); GLUCOSE, URINE (UA) NEGATIVE (NEGATIVE); KETONES,URINE 3+ (NEGATIVE); LEUKOCYTE ESTERASE ,URINE 2+ (NEGATIVE); NITRITE,URINE NEGATIVE (NEGATIVE); PH,URINE 7 (4.5-8.0); PROTEIN,URINE 2+ (NEGATIVE); UROBILINOGEN,URINE 1 MG/DL (0.0-1.0)
[2020-09-25 20:48] LABS: COLOR,URINE YELLOW
[2020-09-25] MEDS ORDERED: cefTRIAXone 1 GM in NS 55 ML IVPB ONE (21:15)
[2020-09-25] MEDS ORDERED: TYLENOL325 MG ORAL (21:17)
[2020-09-25] MEDS ORDERED: MYLANTA MAXIMU355 ML PO (21:17)
[2020-09-25 21:40] VITALS: BP 137/76
--- NOTE | 2020-09-25 21:40 | NUR ---
ER DISCHARGE NOTE: Patient is cleared to be discharged per ERMD, pt is aox4, on room air, with stable vital signs. pt denies current n/v or pain. pt was given dc and prescription instructions, pt was able to verbalize understanding, pt id band and iv site removed without complications. pt is able to ambulate with steady gait. pt took all belongings.
== END 2020-09-25 21:40 | disposition home or self-care (01) ==
LOC: EMR 18:35
DX: R11.2 Nausea with vomiting, unspecified (principal); R10.13 Epigastric pain; N30.00 Acute cystitis without hematuria; I10 Essential (primary) hypertension; F12.90 Cannabis use, unspecified, uncomplicated; F17.200 Nicotine dependence, unspecified, uncomplicated
CPT/HCPCS: 36415; 80053; 80307; 81003; 82248; 83690; 85025; 85610; 85730; 87086; 96361; 96365; 96375; G0480; J0696; J1200; J2270; J2765; J7030; S0028; Z7502; 99284

== ENCOUNTER 2020-10-05 21:41 | Emergency (ER) | payer MEDICAID ==
[~2020-10-05] VITALS: Ht 167.6 cm; Wt 90.7 kg
[~2020-10-05 21:41] MED LIST changes: +FAMOTIDINE20 MG ORAL; +MYLANTA MAXIMU355 ML PO; +PHENERGAN SUPP25 MG RECTAL; +PHENERGAN25 M1 ORAL; +TYLENOL325 MG ORAL
--- NOTE | 2020-10-05 21:59 | NUR ---
ED Nurse Note: pt is axox4, she is ambulatory and walks with a steady gait. Her vitals are stable on RA as documented. She is ab le to speak in complete sentances. She is co of vomiting since 15:00 today. She is retching intermittently on assement. She said that her nausea had started suddenly. She ate a salad today.
[2020-10-05 22:03] VITALS: BP 145/82
--- NOTE | 2020-10-05 22:08 | Emergency Room Report ---
History of Present Illness General Chief Complaint: Vomiting Source: Patient, Medical Record Present Illness HPI This is a 50-year-old female with history of high blood pressure. She has a history of frequent abdominal pain with nausea and vomiting. She presents with chief complaint of nausea and vomiting and abdominal pain after eating a salad. Also history of marijuana use but she is to have been used in 2 days. No fever chills. Pain is diffuse in nature. Pain is sharp and crampy. 9 out of 10. Vomiting is nonbloody nonbilious. Now just retching. Denies any diarrhea. No fever chills. Similar symptom in the past. Nothing made it better. Nothing m bulmaro it worse. 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 Patient History Past Medical History: see triage record, old chart reviewed, HTN Past Surgical History: other Pertinent Family History: none Social History: Denies: smoking Now: No Immunizations: other Reviewed Nursing Documentation: PMH: Agreed; PSxH: Agreed Nursing Documentation-PMH Hx Hypertension: Yes Hx Cancer: No Hx Gastrointestinal Problems: Yes - ACID REFLUX Hx Neurological Problems: No Review of Systems Eye: Denies: eye pain, blurred vision ENT: Denies: ear pain, nose congestion, throat swelling Respiratory: Denies: cough, shortness of breath Cardiovascular: Denies: chest pain, palpitations Gastrointestinal: Reports: abdominal pain, nausea, vomiting; Denies: diarrhea Musculoskeletal: Denies: back pain, joint pain Skin: Denies: rash Neurological: Denies: headache, numbness Endocrine: Denies: increased thirst, increased urine Hematologic/Lymphatic: Denies: easy bruising All Other Systems: negative except mentioned in HPI Physical Exam Vital Signs Date Time Temp Pulse Resp B/P (MAP) Pulse Ox O2 Delivery O2 Flow Rate FiO2 10/05/20 21:50 98.4 84 16 148/89 (108) 18 Room Air Blood pressure, high Sp02 EP Interpretation: reviewed, normal General Appearance: well appearing, no apparent distress, alert Head: normocephalic, atraumatic Eyes: bilateral eye PERRL, bilateral eye EOMI ENT: hearing grossly normal, normal pharynx Neck: full range of motion, supple, no meningismus Respiratory: chest non-tender, lungs clear, normal breath sounds Cardiovascular #1: regular rate, rhythm, no murmur Gastrointestinal: non tender, no mass, no organomegaly, no bruit, non- distended, decreased bowel sounds Musculoskeletal: back normal, normal range of motion, gait/station normal Psychiatric: mood/affect normal Medical Decision Making Diagnostic Impression: Primary Impression: Cyclic vomiting syndrome ER Course This patient presents with symptom consistent with cyclic vomiting syndrome. She is better after nausea medication and pain medication. On recheck, abdominal exam is benign. No more pain. She tolerated p.o. Will discharge home. Last Vital Signs Date Time Temp Pulse Resp B/P (MAP) Pulse Ox O2 Delivery O2 Flow Rate FiO2 10/05/20 21:50 98.4 84 16 148/89 (108) 18 Room Air Status: improved Disposition: HOME, SELF-CARE Condition: Stable Scripts Ondansetron Odt* (ZOFRAN ODT*) 4 Mg Tab.rapdis 4 MG BC EVERY 6 HOURS PRN for Nausea & Vomiting, #10 TAB 0 Refills Prov: Herrera Schwarz MD 10/05/20 Patient Instructions: Nausea and Vomiting, Adult Additional Instructions: Follow-up with your doctor in 7 days. Return if worse. Herrera Schwarz MD Oct 05, 2020 22:08
[2020-10-05] MEDS ORDERED: HYDROmorphone 1mg/ml Carpuject IM ONE (22:15)
[2020-10-05] MEDS ORDERED: Promethazine 50mg/ml Inj IM ONE (22:15)
[2020-10-05] MEDS ORDERED: ONDANSETRON ODT4 MG BC (23:15)
[2020-10-05 23:31] VITALS: BP 142/85
--- NOTE | 2020-10-05 23:31 | NUR ---
ER DISCHARGE NOTE: Patient is cleared to be discharged per ERMD, pt is aox4, on room air, with stable vital signs. pt was given dc and prescription instructions, pt was able to verbalize understanding, pt id band removed. pt is able to ambulate with steady gait. pt took all belongings. Pt left by private car.
== END 2020-10-05 23:31 | disposition home or self-care (01) ==
LOC: EMR 22:23
DX: R11.15 Cyclical vomiting syndrome unrelated to migraine (principal); I10 Essential (primary) hypertension; K21.9 Gastro-esophageal reflux disease without esophagitis
CPT/HCPCS: 96372; J1170; J2550; Z7502; 99283

== ENCOUNTER 2020-10-07 13:58 | Emergency (ER) | payer MEDICAID ==
[~2020-10-07] VITALS: Ht 167.6 cm; Wt 94.3 kg
[~2020-10-07 13:58] MED LIST changes: +ONDANSETRON ODT4 MG BC
[2020-10-07] MEDS ORDERED: Ketorolac 30mg Inj IV ONE (14:15)
[2020-10-07 14:30] VITALS: BP 166/110
[2020-10-07] MEDS ORDERED: Omnipaque-300 100ml vial INJ PRN (14:30)
--- NOTE | 2020-10-07 14:30 | NUR ---
ED Nurse Note: Pt ambulated to ED from home d/t abdominal pain on the upper region accompanied with hematemesis that started today this morning. Pt is AOx4, calm and cooperative to care, VSS, on RA, afebrile on triage.
[2020-10-07 15:36] LABS: BASOPHILS % (AUTO) 1.1 % (0.0-2.0); EOSINOPHILS % (AUTO) 0.3 % (0.0-3.0); HEMATOCRIT 45.4 % (37.0-47.0); HEMOGLOBIN 15.2 G/DL (12.0-16.0); LYMPHOCYTES % (AUTO) 39.8 % (20.0-45.0); MEAN CORPUSCULAR VOLUME 105 FL (80-99); MONOCYTES % (AUTO) 4.9 % (1.0-10.0); NEUTROPHILS % (AUTO) 53.8 % (45.0-75.0); PLATELET COUNT 425 K/UL (150-450); RED BLOOD COUNT 4.31 M/UL (4.20-5.40); RED CELL DISTRIBUTION WIDTH 12.4 % (11.6-14.8); WHITE BLOOD COUNT 8.2 K/UL (4.8-10.8)
[2020-10-07 15:42] LABS: BILIRUBIN, URINE NEGATIVE (NEGATIVE); GLUCOSE, URINE (UA) NEGATIVE (NEGATIVE); INR 0.9 (0.9-1.1); KETONES,URINE 1+ (NEGATIVE); LEUKOCYTE ESTERASE ,URINE 1+ (NEGATIVE); NITRITE,URINE NEGATIVE (NEGATIVE); PH,URINE 7 (4.5-8.0); PROTEIN,URINE 3+ (NEGATIVE); UROBILINOGEN,URINE NORMAL MG/DL (0.0-1.0)
[2020-10-07 15:49] LABS: APPEARANCE,URINE SLIGHTLY CLOUDY; COLOR,URINE YELLOW
[2020-10-07 15:52] LABS: ANION GAP 10 mmol/L (5-15); BLOOD UREA NITROGEN 13 mg/dL (7-18); CALCIUM 10.2 MG/DL (8.5-10.1); CARBON DIOXIDE 26 MMOL/L (21-32); CHLORIDE 103 MMOL/L (98-107); CREATININE 1.1 MG/DL (0.55-1.30); POTASSIUM 3.8 MMOL/L (3.5-5.1); SODIUM 139 MMOL/L (136-145)
[2020-10-07 16:07] LABS: ALANINE AMINOTRANSFERASE 36 U/L (12-78); ALBUMIN 4.3 G/DL (3.4-5.0); ALKALINE PHOSPHATASE 74 U/L (46-116); ASPARTATE AMINO TRANSFERASE 25 U/L (15-37); BILIRUBIN,TOTAL 1.1 MG/DL (0.2-1.0)
--- NOTE | 2020-10-07 16:10 | NUR ---
ED Nurse Note: Pt went down to CT via wheelchair.
--- NOTE | 2020-10-07 16:30 | NUR ---
ED Nurse Note: Pt returned from CT.
--- NOTE | 2020-10-07 16:43 | Diagnostic Imaging Report ---
Clinical Indication: Vomiting blood. Abdominal pain Technique: No oral contrast utilized, per emergency room physician request IV administration nonionic contrast. Venous phase spiral acquisition obtained through the abdomen and pelvis. Multiplanar reconstructions were generated. Total dose length product 618 mGycm. CTDIvol(s) 12 mGy. Dose reduction achieved using automated exposure control Comparison: 07/11/2019 noncontrast study Findings: The appendix is normal. There are colonic diverticula. No evidence of acute diverticulitis. No small bowel distention. Distal esophagus, stomach, duodenum are unremarkable. No free or loculated intraperitoneal gas or fluid is evident. There is a broad-based umbilical hernia that contains only fat The liver demonstrates focal fatty change in the usual location adjacent to the falciform ligament. No other focal abnormality. The gallbladder, bile ducts, pancreas, spleen, adrenals, kidneys are unremarkable. No renal or ureteral calculi, hydronephrosis nor hydroureter. No pelvic mass or adenopathy. Uterus and adnexal structures are unremarkable. Left-sided vaginal wall cyst is again demonstrated The included lung bases are clear. There are degenerative changes of the lumbosacral junction. Impression: No acute abnormality. No findings to explain stated clinical history of vomiting blood Colonic diverticulosis. No evidence of diverticulitis Other findings as noted, including degenerative lumbosacral spondylosis, left-sided vaginal wall cyst, broad-based fat-containing umbilical hernia, focal hepatic fatty change The CT scanner at [facility] is accredited by the [employer] and the scans are performed using protocols designed to limit radiation exposure to as low as reasonably achievable to attain images of sufficient resolution adequate for diagnostic evaluation.
--- NOTE | 2020-10-07 16:47 | Emergency Room Report ---
History of Present Illness General Chief Complaint: Gastrointestinal Bleed Source: Patient Present Illness HPI 50-year-old female with history of cyclic vomiting who has been here multiple times the past 2 weeks and abuses marijuana here complaining of worsening episodes of nausea vomiting reports that now they are bright red. Denies any diarrhea however complains of constipation reports that the last bowel movement was yesterday. Denies any bloody stools. Denies fever and chills, diffuse abdominal pain. Denies tobacco smoke, no other drug use. Denies alcohol intake. Denies cough or congestion, chest pain, shortness of breath. 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[employer]CEMENT OFFICER: No Patient History Past Medical History: see triage record Past Surgical History: none Pertinent Family History: none Now: No Immunizations: UTD Reviewed Nursing Documentation: PMH: Agreed; PSxH: Agreed Nursing Documentation-PMH Past Medical History: No History, Except For Hx Hypertension: Yes Hx Cancer: No Hx Gastrointestinal Problems: Yes - ACID REFLUX Hx Neurological Problems: No Review of Systems All Other Systems: negative except mentioned in HPI Physical Exam Vital Signs Date Time Temp Pulse Resp B/P (MAP) Pulse Ox O2 Delivery O2 Flow Rate FiO2 10/07/20 14:04 98.2 87 18 166/110 (128) 99 Room Air Sp02 EP Interpretation: reviewed, normal General Appearance: no apparent distress, alert, GCS 15, non-toxic Head: normocephalic, atraumatic Eyes: bilateral eye normal inspection, bilateral eye PERRL ENT: hearing grossly normal, normal pharynx, no angioedema, normal voice Neck: full range of motion, supple/symm/no masses Respiratory: chest non-tender, lungs clear, normal breath sounds, no rhonchi, no respiratory distress, no retraction, speaking full sentences Cardiovascular #1: regular rate, rhythm, no edema Cardiovascular #2: 2+ carotid (R), 2+ carotid (L), 2+ radial (R), 2+ radial (L), 2+ dorsalis pedis (R), 2+ dorsalis pedis (L) Gastrointestinal: non tender, soft, no mass, no organomegaly, no peritonitis, no bruit, non-distended, no guarding, no hernia, no pulsatile mass, no rebound Rectal: deferred Genitourinary: no CVA tenderness Musculoskeletal: back normal, no calf tenderness Neurologic: alert, motor strength/tone normal, oriented x3, sensory intact, responsive, speech normal Psychiatric: judgement/insight normal, memory normal, mood/affect normal, no suicidal/homicidal ideation Skin: no rash Lymphatic: no adenopathy Medical Decision Making PA Attestation All diagnoses and treatment plans were reviewed and discussed with my supervisin physician Dr. Deluca Diagnostic Impression: Primary Impression: Gastritis Additional Impression: Diverticulosis ER Course 50-year-old female with history of cyclic vomiting who has been here multiple times the past 2 weeks and abuses marijuana here complaining of worsening episodes of nausea vomiting reports that now they are bright red. Denies any diarrhea however complains of constipation reports that the last bowel movement was yesterday. Denies any bloody stools. Denies fever and chills, diffuse abdominal pain. Denies tobacco smoke, no other drug use. Denies alcohol intake. Denies cough or congestion, chest pain, shortness of breath. Ddx considered but are not limited to: appendicitis, cholecystis, gastritis, gastroenteritis, UTI, pyelonephritis, SBO, diverticulitis, influenza with GI manifestation, upper GI bleed, lower GI bleed Vital signs: are WNL, pt. is afebrile H&PE are most consistent with: Gastritis diverticulosis ORDERS: abdominal CT, abdominal pain set, dicyclomine, lactulose, Pepcid, Phenergan ED INTERVENTIONS: Phenergan, Pepcid, Toradol, NS bolus DISCHARGE: At this time pt. is stable for d/c to home. Will provide printed pa tient care instructions, and any necessary prescriptions. Care plan and follow up instructions have been discussed with the patient prior to discharge. Patient take medication as directed, follow primary care provider and referral to hospitalist medical director may be needed. Avoid marijuana use. If worsening symptom return to the emergency room. CT/MRI/US Diagnostic Results CT/MRI/US Diagnostic Results : Imaging Test Ordered: CT abdomen pelvis with contrast Impression Comparison: 07/11/2019 noncontrast study Findings: The appendix is normal. There are colonic diverticula. No evidence of acute diverticulitis. No small bowel distention. Distal esophagus, stomach, duodenum are unremarkable. No free or loculated intraperitoneal gas or fluid is evident. There is a broad-based umbilical hernia that contains only fat The liver demonstrates focal fatty change in the usual location adjacent to the falciform ligament. No other focal abnormality. The gallbladder, bile ducts, pancreas, spleen, adrenals, kidneys are unremarkable. No renal or ureteral calculi, hydronephrosis nor hydroureter. No pelvic mass or adenopathy. Uterus and adnexal structures are unremarkable. Left-sided vaginal wall cyst is again demonstrated The included lung bases are clear. There are degenerative changes of the lumbosacral junction. Impression: No acute abnormality. No findings to explain stated clinical history of vomiting blood Last Vital Signs Date Time Temp Pulse Resp B/P (MAP) Pulse Ox O2 Delivery O2 Flow Rate FiO2 10/07/20 14:04 98.2 87 18 166/110 (128) 99 Room Air Disposition: HOME, SELF-CARE Condition: Stable Scripts Lactulose (LACTULOSE*) 20 Gm/30 Ml Solution 15 ML ORAL TID, #200 ML 0 Refills Prov: Yue Flowers 10/07/20 Dicyclomine Hcl* (DICYCLOMINE HCL*) 10 Mg Capsule 10 MG ORAL QID, #20 CAP Prov: Yue Flowers 10/07/20 Famotidine* (Pepcid 20mg tablet*) 20 Mg Tablet 20 MG ORAL DAILY for Gerd, #30 TAB 0 Refills Prov: Yue Flowers 10/07/20 Promethazine Hcl* (PHENERGAN*) 25 Mg Tablet 25 MG ORAL Q6H, #21 TAB Prov: Yue Flowers 10/07/20 Referrals: NON PHYSICIAN (PCP) Patient Instructions: Diverticulosis, Gastritis, Adult, [id number] Additional Instructions: Take medication as directed, follow-up with hospitalist medical director, if worsening symptoms return to the emergency room Yue Flowers Oct 07, 2020 16:47
[2020-10-07] MEDS ORDERED: LACTULOSE20 GM/301 ORAL (16:49)
[2020-10-07] MEDS ORDERED: PROMETHAZINE HC25 M1 ORAL (16:49)
[2020-10-07] MEDS ORDERED: DICYCLOMINE HCL10 MG ORAL (16:49)
[2020-10-07] MEDS ORDERED: FAMOTIDINE20 MG ORAL (16:49)
[2020-10-07 17:11] LABS: BILIRUBIN,DIRECT 0.2 MG/DL (0.0-0.3)
[2020-10-07 17:27] VITALS: BP 158/98
--- NOTE | 2020-10-07 17:27 | NUR ---
ER DISCHARGE NOTE: Patient is cleared to be discharged per ERPA, pt is aox4, on room air, with stable vital signs. pt was given dc and prescription instructions, pt was able to verbalize understanding, pt id band and iv site removed without complications. pt is able to ambulate with steady gait. pt took all belongings.
== END 2020-10-07 17:26 | disposition home or self-care (01) ==
LOC: EMR 14:40
DX: K29.70 Gastritis, unspecified, without bleeding (principal); K57.90 Diverticulosis of intestine, part unspecified, without perforation or abscess without bleeding; F12.10 Cannabis abuse, uncomplicated; I10 Essential (primary) hypertension
CPT/HCPCS: 36415; 74177; 80053; 80307; 81003; 81025; 82248; 83690; 85025; 85610; 85730; 86850; 86900; 86901; 87086; 96361; 96374; 96375; J1885; J2550; J7030; Q9965; S0028; Z7502; 99284